=== PATIENT | male | born 1980 | race Two or more races ===

== ENCOUNTER 2019-09-07 22:29 | Emergency (ER) | payer OTHER ==
[~2019-09-07] VITALS: Ht 165.1 cm; Wt 73.0 kg
[2019-09-07 22:33] VITALS: BP 116/79
[2019-09-07] MEDS ORDERED: DIPH,PERTUSS(ACELL),TET VAC/PF 0.5 ML IM-VACC ONE ×2 (23:30→23:48)
== END 2019-09-08 01:02 | disposition home or self-care (01) ==
LOC: ED 23:59
DX: S81.832A Puncture wound without foreign body, left lower leg, initial encounter (principal); X58.XXXA Exposure to other specified factors, initial encounter; Y93.89 Activity, other specified; Y92.89 Other specified places as the place of occurrence of the external cause; Y99.8 Other external cause status
CPT/HCPCS: 90471; 90715